=== PATIENT | male | born 1995 | race Caucasian/White ===

== ENCOUNTER 2016-05-17 19:22 | Emergency (ER) | payer BC ==
[2016-05-17 19:50] VITALS: BP 116/77
--- NOTE | 2016-05-17 20:13 | UC ---
FLU HPI - HPI Summary HPI Summary: Feverish, nasal congestion, cough, and aches starting yesterday. Saw [facility] at [place], was told it was viral and Rx flonase. Pt worries it is the flu and would want tamiflu if so. - History of Current Complaint Chief Complaint: UCRespiratory Stated Complaint: FLU SYMPTOMS Time Seen by Provider: 05/17/16 20:01 Hx Obtained From: Patient Onset/Duration: Gradual Onset, Lasting Days Severity Currently: Mild Severity Initially: Moderate Associated Signs & Symptoms: Positive: Fever, Cough, Sore Throat, Nasal Congestion - Allergy/Home Medications Allergies/Adverse Reactions: Allergies Allergy/AdvReac Type Severity Reaction Status Date / Time No Known Allergies Allergy Verified 05/17/16 19:50 Home Medications: Home Medications Ibuprofen [Advil] 200 mg PO 05/17/16 [History] [id number] W/ APAP [Mucinex Fast-Max Cold/Flu [id number] mg] [History] PMH/Surg Hx/FS Hx/Imm Hx Respiratory History Of: Reports: Asthma - Surgical History Surgical History: Yes Surgery Procedure, Year, and Place: tonsillectomy in October - Family History Known Family History: Negative: Blood Disorder - Social History Occupation: Student Lives: Alone Alcohol Use: Weekly Substance Use Type: None Smoking Status (MU): Never Smoked Tobacco Review of Systems Constitutional: Fever, Chills Skin: Negative Eyes: Negative ENT: Negative Respiratory: Negative Cardiovascular: Negative Gastrointestinal: Negative Genitourinary: Negative Motor: Negative Neurovascular: Negative Musculoskeletal: Myalgia Neurological: Headache Psychological: Negative All Other Systems Reviewed And Are Negative: Yes Physical Exam Triage Information Reviewed: Yes Appearance: Well-Appearing, No Pain Distress, Well-Nourished Vital Signs: Initial Vital Signs Temp 100.1 F 05/17/16 19:44 Pulse 112 05/17/16 19:44 Resp 20 05/17/16 19:44 BP 116/77 05/17/16 19:44 Pulse Ox 98 05/17/16 19:44 Vital Signs Reviewed: Yes Eye Exam: Normal Eyes: Positive: Conjunctiva Clear ENT: Positive: Pharynx normal, Nasal congestion, TMs normal Dental Exam: Normal Neck exam: Normal Neck: Positive: Supple, Nontender, No Lymphadenopathy Respiratory Exam: Normal Respiratory: Positive: Chest non-tender, Lungs clear, Normal breath sounds, No respiratory distress, No accessory muscle use Cardiovascular: Positive: No Murmur, Tachycardia Abdominal Exam: Normal Musculoskeletal Exam: Normal Neurological Exam: Normal Psychological Exam: Normal Skin Exam: Normal Flu Course/Dx - Differential Dx/Diagnosis Provider Diagnoses: Influenza Type A Discharge - Discharge Plan Condition: Stable Disposition: HOME Prescriptions: Oseltamivir Phosphate [Tamiflu] 75 mg PO BID #9 cap Patient Education Materials: Influenza (ED) Referrals: No Primary Care Phys,NOPCP [Primary Care Provider] - Additional Instructions: Call or return if you develop increasing fever, shortness of breath, chest pain , bloody sputum, or otherwise worsen. If you have not improved at all after several days, contact your primary care physician or return here.
[2016-05-17] MEDS ORDERED: Oseltamivir CAP* 75 MG PO ONE (20:28)
== END 2016-05-17 20:40 | disposition home or self-care (01) ==
LOC: UCEAST 19:22
DX: J10.1 Influenza due to other identified influenza virus with other respiratory manifestations (principal)
CPT/HCPCS: 87502; 99202; A9270-GY; G0463

== ENCOUNTER 2016-08-03 09:46 | Emergency (ER) | payer BC ==
[2016-08-03 11:13] VITALS: BP 120/72
--- NOTE | 2016-08-03 11:23 | UC ---
Throat Pain/Nasal René HPI - HPI Summary HPI Summary: 21 Y/O male being seen for complaint of sore throat x 1 day and fever last night. Denies nausea, vomiting, or respiratory symptoms. Medications reviewed at this visit. - History of Current Complaint Chief Complaint: UCGeneralIllness Stated Complaint: SORE THROAT, FEVER Time Seen by Provider: 08/03/16 11:14 Hx Obtained From: Patient Onset/Duration: Gradual Onset Severity: Moderate Pain Intensity: 5 Pain Scale Used: 0-10 Numeric Cough: None Associated Signs & Symptoms: Positive: Fever - Allergies/Home Medications Allergies/Adverse Reactions: Allergies Allergy/AdvReac Type Severity Reaction Status Date / Time No Known Allergies Allergy Verified 05/17/16 19:50 PMH/Surg Hx/FS Hx/Imm Hx Previously Healthy: Yes Respiratory History Of: Reports: Asthma - Surgical History Surgical History: Yes Surgery Procedure, Year, and Place: tonsillectomy in October - Family History Known Family History: Negative: Blood Disorder - Social History Alcohol Use: Weekly Substance Use Type: None Smoking Status (MU): Never Smoked Tobacco Review of Systems Constitutional: Fever Skin: Negative Eyes: Negative ENT: Sore Throat Respiratory: Negative Cardiovascular: Negative Gastrointestinal: Negative Genitourinary: Negative Motor: Negative Neurovascular: Negative Musculoskeletal: Negative Neurological: Negative Psychological: Negative All Other Systems Reviewed And Are Negative: Yes Physical Exam Triage Information Reviewed: Yes Appearance: Well-Appearing Vital Signs: Initial Vital Signs Temp 98.7 F 08/03/16 11:08 Pulse 78 08/03/16 11:08 Resp 16 08/03/16 11:08 BP 120/72 08/03/16 11:08 Pulse Ox 100 08/03/16 11:08 Vital Signs Reviewed: Yes Eye Exam: Normal Eyes: Positive: Conjunctiva Clear ENT Exam: Other ENT: Positive: Pharyngeal erythema, TMs normal Dental Exam: Normal Neck exam: Normal Neck: Positive: Nontender, No Lymphadenopathy Respiratory Exam: Normal Respiratory: Positive: Lungs clear, Normal breath sounds, No respiratory distress Cardiovascular Exam: Normal Cardiovascular: Positive: RRR Abdominal Exam: Normal Abdomen Description: Positive: Nontender, Soft Bowel Sounds: Positive: Present Musculoskeletal Exam: Normal Neurological Exam: Normal Psychological Exam: Normal Skin Exam: Normal Throat Pain/Nasal Course/Dx - Differential Dx/Diagnosis Differential Diagnosis/HQI/PQRI: Epiglottitis, Pharyngitis Provider Diagnoses: Strep throat Discharge - Discharge Plan Condition: Stable Disposition: HOME Patient Education Materials: Strep Throat (ED) Additional Instructions: Please take antibiotics as ordered. May take Ibuprofen 600mg by mouth every 8 hours as needed for pain. Follow up with primary medical provider or walk in if symptoms do not improve or for worsening pain / fever/ difficulty swallowing.
== END 2016-08-03 12:24 | disposition home or self-care (01) ==
LOC: UCEAST 09:46
DX: J02.0 Streptococcal pharyngitis (principal)
CPT/HCPCS: 87651; 99212; G0463

== ENCOUNTER 2017-05-31 11:33 | Emergency (ER) | payer BC ==
[2017-05-31 11:50] VITALS: BP 152/85
--- NOTE | 2017-05-31 12:43 | UC ---
Respiratory Complaint HPI - HPI Summary HPI Summary: 22 yo WM c/o 1 week h/o cough that started out with a UTI but worsening and increased amount of sputum associated with new onset of f/c/bodyaches x 2 days. - History of Current Complaint Chief Complaint: UCRespiratory Stated Complaint: COLD SYMPTOMS Time Seen by Provider: 05/31/17 11:57 Hx Obtained From: Patient Onset/Duration: Lasting Days Severity Initially: Moderate Pain Intensity: 6 Character: Cough: Productive Associated Signs And Symptoms: Positive: Fever, Chills, Pleuritic Chest Pain. Negative: Dyspnea - Allergies/Home Medications Allergies/Adverse Reactions: Allergies Allergy/AdvReac Type Severity Reaction Status Date / Time No Known Allergies Allergy Verified 05/31/17 11:50 PMH/Surg Hx/FS Hx/Imm Hx Previously Healthy: Yes - Surgical History Surgical History: Yes Surgery Procedure, Year, and Place: tonsillectomy - Family History Known Family History: Negative: Blood Disorder - Social History Alcohol Use: Weekly Substance Use Type: None Smoking Status (MU): Never Smoked Tobacco Review of Systems Constitutional: Fever, Chills, Fatigue Skin: Negative Eyes: Negative ENT: Negative Respiratory: Cough - with pleuritic CP Cardiovascular: Negative Gastrointestinal: Negative Genitourinary: Negative Motor: Negative Neurovascular: Negative Musculoskeletal: Negative, Myalgia Neurological: Negative Psychological: Negative Is Patient Immunocompromised?: No All Other Systems Reviewed And Are Negative: Yes Physical Exam Triage Information Reviewed: Yes Appearance: No Pain Distress Vital Signs: Initial Vital Signs Temp 37.9 C 05/31/17 11:47 Pulse 106 05/31/17 11:47 Resp 16 05/31/17 11:47 BP 152/85 05/31/17 11:47 Pulse Ox 99 05/31/17 11:47 Eye Exam: Normal ENT Exam: Normal ENT: Positive: Pharyngeal erythema, TM red - B/L Dental Exam: Normal Neck exam: Normal Neck: Positive: Tenderness @ - B/L anterior cervical and B/L post. auricular Respiratory: Positive: No respiratory distress, Rhonchi - with cough. Negative : Crackles, Stridor, Wheezing Cardiovascular Exam: Normal Abdominal Exam: Normal Musculoskeletal Exam: Normal Neurological Exam: Normal Psychological Exam: Normal Skin Exam: Normal UC Diagnostic Evaluation - Laboratory O2 Sat by Pulse Oximetry: 99 Respiratory Course/Dx - Course Course Of Treatment: rapid flu neg but given recency of flu-like signs of current presentation, will tx with Tamiflu and a Z-una to cover for secondary bacterial bronchitis - Differential Dx/Diagnosis Provider Diagnoses: Inlfuenza-like illness. Bronchitis. elevated BP in acute illness Discharge - Discharge Plan Condition: Stable Disposition: HOME Prescriptions: Azithromycin TAB* [Zithromax TAB (Z-UNA) 250 mg #6 tabs] 2 tab PO .TODAY, THEN 1 DAILY #1 una Oseltamivir CAP* [Tamiflu CAP*] 75 mg PO BID 5 Days #10 cap Patient Education Materials: Acute Bronchitis (ED), Viral Syndrome (ED) Referrals: No Primary Care Phys,NOPCP [Primary Care Provider] -
== END 2017-05-31 12:50 | disposition home or self-care (01) ==
LOC: UCEAST 11:33
DX: J10.1 Influenza due to other identified influenza virus with other respiratory manifestations (principal); R03.0 Elevated blood-pressure reading, without diagnosis of hypertension
CPT/HCPCS: 87502; 99212; G0463